=== PATIENT | female | born 1995 | race Caucasian/White ===

== ENCOUNTER 2017-01-01 16:01 | Emergency (ER) | payer BC ==
[~2017-01-01] VITALS: Ht 167.6 cm; Wt 75.5 kg
[2017-01-01 16:09] VITALS: BP 121/75; PULSE 103; TEMP 36.7; O2SAT 99; Ht 167.6 cm; Wt 75.5 kg
--- NOTE | 2017-01-01 16:36 | DIAGNOSTIC IMAGING REPORT ---
RIGHT FOOT MIN 3 VIEWS ROUTINE CLINICAL HISTORY: R foot pain; running stepped on rock; 4-5 MC pain. COMPARISON: None FINDINGS: Tarsometatarsal joints are intact. There is no acute fracture within the right foot. Joint spaces are preserved. IMPRESSION: No acute fracture or dislocation within the right foot. Electronically signed by: Refugio Freedman M.D. 01/01/2017 4:35 PM Dictated Date/Time: 01/01/2017 4:34 PM
--- NOTE | 2017-01-02 19:54 | EMERGENCY ROOM VISIT NOTE ---
ED Visit Note First contact with patient: 16:13 Chief Complaint: Right foot pain. History of Present Illness: Ms. Mills is a 21-year-old white female who ambulates into the ED with a lump accompanied by male friend complaining of right foot pain. Patient reports approximately 3 hours ago she was running for exercise and stepped on a sharp rock. Immediately after stepping on the rock she started having pain over the fourth and fifth MTP and metatarsals of the right foot. Since that time the pain has been constant. Currently patient describes the pain as a sharp and throbbing sensation. She rates her discomfort 7/10. The pain is nonradiating. The pain worsens with palpation and ambulation. Her pain improved when she has not ambulating or someone is pushing on her foot. She has not taken a medication for pain prior to arrival at the hospital. She denies any associated symptoms including hip pain, knee pain, lower leg pain, ankle pain, foot weakness/numbness/tingling. Additionally she denies any previous significant injuries or surgeries to the foot. Review of Systems: As noted above in history of present illness. Past Medical History: Patient denies. Current Medications: Patient denies. Allergies to Medications: Patient denies. Social History: Patient is currently University student; she feels safe in her home environment; she denies tobacco and alcohol use. Physical Examination: Vital Signs: Date Time Temp Pulse Resp B/P (MAP) Pulse Ox O2 Delivery O2 Flow Rate FiO2 01/01/17 16:09 36.7 103 18 121/75 99 Room Air GENERAL: -year-old female in mild to moderate distress due to pain, nontoxic- appearing, afebrile and hemodynamically stable. NEUROLOGICAL: Awake, alert and oriented to person, place and time. Answering questions appropriately and following commands. SKIN: Warm, dry and pink. No soft tissue eruptions or trauma noted. RIGHT FOOT: No gross bony deformity. No tenderness over the lower leg, ankle. Moderate tenderness over the fourth and fifth MTP joints and metatarsals. Do not appreciate any bony deformity or crepitus. There is no local swelling or ecchymosis. She does have full range of motion in plantar flexion and dorsiflexion of the ankle and flexion and extension of all toes against resistance. Throughout the foot the skin was warm and pink and capillary refill is brisk. She is able to distinguish light sensations through all dermatomes of the toes and foot. ED Course: Patient is assessed as noted above. Patient's medication list were reviewed. Right Foot X-Rays: Were read by myself and the radiologist showing no acute fractures or dislocations. Patient was offered ice and medications for pain and refused. Patient was placed in a postop shoe and on nonweightbearing crutches. Patient was educated about today's findings and instructed on her treatment plan ; she verbalizes understanding and agreement with this plan. Clinical Impression: Right foot pain. Disposition: Patient discharged home in stable condition accompanied by male friend; prior to departure she was reassessed and subjectively reported that she was pain and symptom-free. Plan: Comfort measures were discussed with the patient including rest, ice, elevation , postop shoe and crutches and alternating ibuprofen and acetaminophen as needed for pain. Patient was encouraged to follow-up with orthopedic physician if no better in 7- 10 days. Patient was encouraged return ED for worsening/uncontrolled pain, uncontrolled swelling, foot weakness/numbness/tingling or any new/concerning symptoms.
== END 2017-01-01 16:59 | disposition home or self-care (01) ==
LOC: C.EDB 16:03 → C.EDD 16:59
DX: M79.671 Pain in right foot (principal)